=== PATIENT | female | born 1980 | race Caucasian/White ===

== ENCOUNTER 2022-06-28 01:53 | Emergency (ER) | payer MEDICAID, SELFPAY ==
[2022-06-28 01:57] VITALS: BP 110/66; PULSE 115; RESP 19; TEMP 36.7; O2SAT 100; BMI 21.7
--- NOTE | 2022-06-28 02:02 | ED_ITS ---
HPI - General: Chief complaint: Vaginal Bleeding Stated complaint: Martha Sent for Ultra Sound\Rogain Shot Time Seen by Provider: 06/28/22 02:00 Source: patient Mode of arrival: ambulatory Limitations: no limitations History of Present Illness: 42-year-old female is currently roughly 6 weeks states that over the last day she had some lower abdominal cramping along with vaginal bleeding she was seen at [facility] and transferred here for ultrasound she is also Rh- and needs RhoGAM shot states the pain she has is minor she has not been passing any blood clots or having any heavy bleeding. Associated symptoms: Reports abdominal pain; Deny headache(s) Review of Systems Const: Denies: fever(s), chills, body aches or change in appetite Eyes: Denies: blurry vision or eye discomfort ENMT: Denies: throat pain or dental pain Card: Denies: chest pain Resp: Denies: dyspnea GI: Reports: abdominal pain : Reports: vaginal bleeding Musc: Denies: neck pain or back pain Skin/Breast: Denies: rash Neuro: Denies: headache(s) Psych: Denies: depression Jimmy/Lymph: Denies: easy bruising All/Imm: Denies: urticaria PFSH ED PFSH: Medical History (Updated 06/28/22 @ 03:08 by Kait Palencia MD) Social History (Updated 06/28/22 @ 02:03 by Kait Palencia MD) Substance/Drug Use: never Physical Exam Const: COMMON NORMALS: no acute distress, patient oriented x3 and healthy appearing HENMT: COMMON NORMALS: normocephalic and atraumatic HEAD & SCALP: normocephalic and atraumatic Eye: COMMON NORMALS: Equal, round and reactive pupils present and EOMs intact bilaterally PUPIL: Yes Equal, round and reactive pupils present Neck/C-Spine: COMMON NORMALS: full ROM and supple Chest: COMMONS NORMALS: normal inspection of the chest and normal palpation of entire chest wall Resp: COMMON NORMALS: normal respiratory effort, No retractions, No use of accessory muscles and clear to auscultation bilaterally AUSCULTATION: clear to auscultation bilaterally Cardio: COMMON NORMALS: regular rate, regular rhythm and No murmurs present (Cardio) RATE: regular rate RHYTHM: regular rhythm GI: COMMON NORMALS: Normal to inspection, nondistended, normoactive bowel sounds present, Soft to palpation, non-tender and no masses PALPATION: Yes Soft to palpation Extremity: COMMON NORMALS: normal to inspection and full ROM Neuro: COMMON NORMALS: patient oriented x3, moves all extremities and no focal motor deficits Psych: COMMON NORMALS: mental status grossly normal, Normal thought process present and cooperative THOUGHT PROCESS: Normal thought process present Skin: COMMON NORMALS: no rashes or lesions noted and no wounds GENERAL SKIN EXAM: no rashes or lesions noted Course Vital Signs: Vital signs: Vital Signs Temperature 98.1 F 06/28/22 01:57 Pulse Rate 115 H 06/28/22 01:57 Respiratory Rate 19 H 06/28/22 01:57 Blood Pressure 110/66 06/28/22 01:57 Pulse Oximetry 100 06/28/22 01:57 Oxygen Delivery Me thod 06/28/22 01:57 MDM - OB/Uterine Contractions Medical Decision Making Patient presents here with threatened miscarriage ultrasound showed IUP at 6 weeks no signs of ectopic patient is Rh- will give RhoGAM patient stable for discharge she is to follow-up with OB. Discharge Plan Discharge Patient Disposition: Home Clinical Impression: Threatened miscarriage Prescriptions: No Action clonazepam 1 mg tablet 1 mg PO DAILY Discharge Orders: Discharge ED (Routine); Ordered 06/28/22 Ordered By: Kait Palencia Referrals: Liz Medley MD [Physician] - 1-3 days Discharge Diet: Advance as tolerated Discharge Activity: Resume usual activity Patient Instructions: Threatened Miscarriage (ED) Coding Level of Care Code ED Manufacturing Quality Engineer for Chg Fwd Exam Comprehensive
--- NOTE | 2022-06-28 02:11 | USR_ITS ---
NOTE: Report was unsigned for reason: Order was edited. Original Signature date and time was: 06/28/2022 0411 PROCEDURE INFORMATION: Exam: US First Trimester, Transabdominal and US , Transvaginal Exam date and time: 06/28/2022 2:32 AM Age: 42 years old Clinical indication: Lmp or gestational age (in weeks): 6w 5d by lmp; Other: Spotting x 2 days; ; Additional info: Threatened miscarriage. Estimated due date (Established): 02/16/2023 TECHNIQUE: Imaging protocol: Real-time transabdominal obstetrical ultrasound of the maternal pelvis and a first trimester , less than 14 weeks 0 days, with image documentation. Transvaginal imaging was used for better evaluation of the fetus, adnexa, and/or cervix. COMPARISON: No relevant prior studies available. FINDINGS: Uterus: Transabdominal images of the pelvis show the anteverted and anteflexed uterus measures 10.4 x 5.5 x 5.7 cm in size. Transvaginal exam shows heterogeneous uterine parenchymal echotexture. There is an anterior uterine body heterogeneous echotexture 3.8 x 2.7 cm region, suggestive of an intramural fibroid. There appears to be a monochorionic/monoamniotic ovoid gestational sac. Small yolk sac seen. Tiny indiscrete pole is seen. The estimated gestational age by reported crown lump length of 3.1 mm is 6 weeks and 0 days. Estimated due date (AUA): 02/21/2023. The heart rate is noted to be 80 bpm (representing bradycardia). The amniotic fluid level is normal. The placenta is not well assessed on the exam. There are no subchorionic hemorrhages seen. Recommend short interval follow-up with sonography and serial quantitative beta-hCG levels. Right ovary/adnexa: The right ovary measures 3.1 x 2.7 x 2.2 cm. Normal color Doppler blood flow. No adnexal mass. Left ovary/adnexa: The left ovary measures 3.5 x 1.5 x 3.8 cm. Normal color Doppler blood flow. No adnexal mass. Intraperitoneal space: There is no free fluid in the cul-de-sac. Urinary bladder: Unremarkable sonographic appearance of the bladder. [facility]/US OB <= 14 weeks fetus [id number] IMPRESSION: 1. Single IUP with tiny indiscrete pole. The estimated gestational age by reported crown lump length of 3.1 mm is 6 weeks and 0 days. The heart rate is noted to be 80 bpm (representing bradycardia). No subchorionic hemorrhages seen. Recommend short interval follow-up with sonography and serial quantitative beta-hCG levels. 2. Heterogeneous echotexture of the uterus with suspected anterior uterine body fibroid. 3. Unremarkable sonographic appearance of the ovaries.
[2022-06-28 04:04] VITALS: BP 106/65; PULSE 101; RESP 15; TEMP 36.7
== END 2022-06-28 04:21 | disposition home or self-care (01) ==
PROVIDERS: Emergency Provider Emergency Medicine
DX: O20.0 Threatened abortion (principal); Z3A.01 Less than 8 weeks gestation of pregnancy
CPT/HCPCS: 36430; 76801; 76817; 86850; 86900; 90384; 99284